=== PATIENT | male | born 1965 | race Caucasian/White ===

== ENCOUNTER 2017-12-01 08:43 | Inpatient (IN) | payer OTHER ==
[~2017-12-01] VITALS: Ht 175.3 cm; Wt 106.1 kg
[~2017-12-01 08:43] MED LIST: 12 HOUR DECONG120 M1 PO; ALLOPURINOL300 MG PO; ASPIR-LOW81 MG PO; ASPIRIN EC325 MG PO; CELEBREX200 MG PO; CLOPIDOGREL75 MG PO; COLCRYS0.6 MG PO; CYCLOBENZAPRINE10 MG PO; DOCUSATE SODIU100 MG PO; FLUOXETINE HCL20 MG PO; FOLIC ACID1 MG PO; INDOMETHACIN50 MG PO; LIDOCAINE700 MG TD; LISINOPRIL10 MG PO; LISINOPRIL20 MG PO; LITE COAT ASPI325 M1 PO; OXYCODONE HCL5 MG PO; RANITIDINE HCL75 MG PO; SENNA-TIME S T1 EACH PO; SIMVASTATIN40 MG PO; SIMVASTATIN80 MG PO; THERAGRAN1 TABLET PO; TRAMADOL HCL50 MG PO; VITAMIN B-1100 MG PO; XARELTO10 MG PO; ZOFRAN4 MG PO
[2017-12-01 10:14] LABS: HEMATOCRIT 46.8 % (38.0-50.0); HEMOGLOBIN 16.9 G/DL (12.5-16.6); MCHC 36.1 G/DL (30.0-36.0); MCV 85.9 FL (86-99); PLATELET COUNT 243 K/uL (156-360); RBC DIS.WIDTH-CV 12.2 % (11.8-14.6); RBC DIS.WIDTH-SD 38.4 % (39-53); RED BLOOD COUNT 5.45 M/uL (4.00-5.50); WHITE BLOOD COUNT 19.9 K/uL (4.1-10.2)
[2017-12-01 10:22] LABS: ALBUMIN 4.4 g/dL (3.2-4.8); CHLORIDE 104 mEq/L (99-109); POTASSIUM 4.2 mEq/L (3.7-5.4); SODIUM 137 mEq/L (136-147)
[2017-12-01 10:25] LABS: GLUCOSE 149 mg/dL (70-99); TOTAL PROTEIN 7.9 g/dL (6.4-8.3)
[2017-12-01 10:27] LABS: TOTAL BILIRUBIN 1.4 mg/dL (0.0-1.0)
[2017-12-01 10:28] LABS: ALKALINE PHOSPHATASE 88 IU/L (3-129); CREATININE 0.9 mg/dL (0.6-1.3); GFR ESTIMATE (CALCULATED) > 59 mL/min/ (58.99-99999)
[2017-12-01 10:29] LABS: UREA NITROGEN (BUN) 10 mg/dL (9-23)
[2017-12-01 10:30] LABS: AST (GOT) 14 IU/L (2-34)
[2017-12-01 10:31] LABS: ALT (GPT) 23 IU/L (3-49)
[2017-12-01] MEDS ORDERED: LO-DOSE ASPIRIN81 M2 PO (11:26)
[2017-12-01] MEDS ORDERED: LISINOPRIL20 MG PO (11:26)
[2017-12-01 19:20] VITALS: BP 133/93
[2017-12-01 19:25] VITALS: BP 133/93
[2017-12-01 20:00] VITALS: BP 137/92
[2017-12-01 21:00] VITALS: BP 132/86
[2017-12-01 22:00] VITALS: BP 116/89
[2017-12-01 23:00] VITALS: BP 109/80
[2017-12-02] VITALS (15 sets, daily range): BP systolic 66–119; BP diastolic 49–78
[2017-12-02 06:18] LABS: CHLORIDE 105 MEQ/L (99-109); CREATININE 1.1 MG/DL (0.6-1.3); GFR ESTIMATE (CALCULATED) > 59 mL/min/ (58.99-99999); GLUCOSE 127 mg/dL (70-99); POTASSIUM 4.2 MEQ/L (3.7-5.4); SODIUM 142 MEQ/L (136-147); UREA NITROGEN (BUN) 10 mg/dL (9-23)
[2017-12-02 06:23] LABS: HEMATOCRIT 35.7 % (38.0-50.0); HEMOGLOBIN 12.2 G/DL (12.5-16.6); MCH 30.7 PG (29.0-34.0); MCHC 34.2 G/DL (30.0-36.0); MCV 89.7 FL (86-99); PLATELET COUNT 190 K/uL (156-360); RBC DIS.WIDTH-CV 12.6 % (11.8-14.6); RBC DIS.WIDTH-SD 41.5 % (39-53); RED BLOOD COUNT 3.98 M/uL (4.00-5.50); WHITE BLOOD COUNT 10.4 K/uL (4.1-10.2)
[2017-12-03] VITALS (7 sets, daily range): BP systolic 100–148; BP diastolic 63–72
[2017-12-03 06:09] LABS: BASOPHIL (%) 0.2 % (0-1); EOSINOPHIL (%) 0.6 % (0-5); EOSINOPHIL COUNT 0.1 K/uL (0-0.3); HEMATOCRIT 35.2 % (38.0-50.0); HEMOGLOBIN 12.2 G/DL (12.5-16.6); IMMATURE GRANULOCYTE (%) 0.8 % (0.0-0.7); LYMPHOCYTE (%) 7.5 % (15-42); MCH 31.4 PG (29.0-34.0); MCHC 34.7 G/DL (30.0-36.0); MCV 90.7 FL (86-99); MONOCYTE (%) 7.5 % (3-12); NEUTROPHIL (%) 83.4 % (45-76); NEUTROPHIL COUNT 10.9 K/uL (1.8-6.4); PLATELET COUNT 197 K/uL (156-360); RBC DIS.WIDTH-CV 12.6 % (11.8-14.6); RBC DIS.WIDTH-SD 41.6 % (39-53); RED BLOOD COUNT 3.88 M/uL (4.00-5.50); WHITE BLOOD COUNT 13.1 K/uL (4.1-10.2)
[2017-12-03 06:30] LABS: CHLORIDE 105 MEQ/L (99-109); CREATININE 0.9 MG/DL (0.6-1.3); GFR ESTIMATE (CALCULATED) > 59 mL/min/ (58.99-99999); GLUCOSE 107 mg/dL (70-99); POTASSIUM 4.1 MEQ/L (3.7-5.4); SODIUM 140 MEQ/L (136-147); UREA NITROGEN (BUN) 14 mg/dL (9-23)
[2017-12-04 03:44] VITALS: BP 136/73
[2017-12-04 05:51] LABS: HEMOGLOBIN 11.6 G/DL (12.5-16.6); MCHC 34.1 G/DL (30.0-36.0); MCV 90.9 FL (86-99); PLATELET COUNT 231 K/uL (156-360); RBC DIS.WIDTH-CV 12.4 % (11.8-14.6); RBC DIS.WIDTH-SD 41.4 % (39-53); RED BLOOD COUNT 3.74 M/uL (4.00-5.50); WHITE BLOOD COUNT 12.6 K/uL (4.1-10.2)
[2017-12-04 06:14] LABS: CHLORIDE 103 MEQ/L (99-109); CREATININE 0.9 MG/DL (0.6-1.3); GFR ESTIMATE (CALCULATED) > 59 mL/min/ (58.99-99999); GLUCOSE 102 mg/dL (70-99); POTASSIUM 3.8 MEQ/L (3.7-5.4); SODIUM 138 MEQ/L (136-147); UREA NITROGEN (BUN) 15 mg/dL (9-23)
[2017-12-04 07:24] VITALS: BP 128/66
[2017-12-04 15:17] VITALS: BP 140/67
[2017-12-05 00:36] VITALS: BP 133/79
[2017-12-05 06:06] LABS: BASOPHIL (%) 0.4 % (0-1); EOSINOPHIL (%) 1.4 % (0-5); EOSINOPHIL COUNT 0.2 K/uL (0-0.3); HEMATOCRIT 32.2 % (38.0-50.0); HEMOGLOBIN 11.2 G/DL (12.5-16.6); IMMATURE GRANULOCYTE (%) 0.9 % (0.0-0.7); LYMPHOCYTE (%) 7.6 % (15-42); LYMPHOCYTE COUNT 0.8 K/uL (1.0-2.8); MCH 31.1 PG (29.0-34.0); MCHC 34.8 G/DL (30.0-36.0); MCV 89.4 FL (86-99); MONOCYTE (%) 9.6 % (3-12); MONOCYTE COUNT 1.1 K/uL (0-0.8); NEUTROPHIL (%) 80.1 % (45-76); NEUTROPHIL COUNT 8.8 K/uL (1.8-6.4); PLATELET COUNT 259 K/uL (156-360); RBC DIS.WIDTH-CV 12.3 % (11.8-14.6); RBC DIS.WIDTH-SD 40.2 % (39-53)
[2017-12-05 06:35] LABS: CHLORIDE 102 MEQ/L (99-109); CREATININE 0.8 MG/DL (0.6-1.3); GFR ESTIMATE (CALCULATED) > 59 mL/min/ (58.99-99999); GLUCOSE 97 mg/dL (70-99); POTASSIUM 3.6 MEQ/L (3.7-5.4); SODIUM 140 MEQ/L (136-147); UREA NITROGEN (BUN) 12 mg/dL (9-23)
[2017-12-05 07:36] VITALS: BP 131/74
[2017-12-05 15:33] VITALS: BP 126/87
[2017-12-05 23:15] VITALS: BP 97/53
[2017-12-06 06:12] LABS: HEMATOCRIT 30.6 % (38.0-50.0); HEMOGLOBIN 10.7 G/DL (12.5-16.6); MCH 30.9 PG (29.0-34.0); MCV 88.4 FL (86-99); PLATELET COUNT 279 K/uL (156-360); RBC DIS.WIDTH-CV 12.3 % (11.8-14.6); RBC DIS.WIDTH-SD 39.8 % (39-53); RED BLOOD COUNT 3.46 M/uL (4.00-5.50); WHITE BLOOD COUNT 9.7 K/uL (4.1-10.2)
[2017-12-06 06:32] LABS: CHLORIDE 104 MEQ/L (99-109); CREATININE 0.8 MG/DL (0.6-1.3); GFR ESTIMATE (CALCULATED) > 59 mL/min/ (58.99-99999); GLUCOSE 119 mg/dL (70-99); POTASSIUM 3.3 MEQ/L (3.7-5.4); SODIUM 140 MEQ/L (136-147); UREA NITROGEN (BUN) 8 mg/dL (9-23)
[2017-12-06 07:30] VITALS: BP 122/69
[2017-12-06 07:51] LABS: MAGNESIUM 1.9 mg/dl (1.3-2.7)
[2017-12-06 16:14] VITALS: BP 133/84
[2017-12-06 23:20] VITALS: BP 117/66
[2017-12-07 01:05] LABS: C DIFF TOXIN NEGATIVE (NEGATIVE)
[2017-12-07 07:31] VITALS: BP 124/83
[2017-12-07] MEDS ORDERED: NORCO 5/3251 TABLET PO (08:20)
[2017-12-07 08:53] LABS: HEMATOCRIT 29.9 % (38.0-50.0); HEMOGLOBIN 10.2 G/DL (12.5-16.6); MCH 30.3 PG (29.0-34.0); MCHC 34.1 G/DL (30.0-36.0); MCV 88.7 FL (86-99); PLATELET COUNT 289 K/uL (156-360); RBC DIS.WIDTH-CV 12.4 % (11.8-14.6); RBC DIS.WIDTH-SD 40.7 % (39-53); RED BLOOD COUNT 3.37 M/uL (4.00-5.50); WHITE BLOOD COUNT 9.3 K/uL (4.1-10.2)
[2017-12-07 09:15] LABS: CHLORIDE 107 MEQ/L (99-109); CREATININE 0.7 MG/DL (0.6-1.3); GFR ESTIMATE (CALCULATED) > 59 mL/min/ (58.99-99999); GLUCOSE 105 mg/dL (70-99); POTASSIUM 3.5 MEQ/L (3.7-5.4); SODIUM 144 MEQ/L (136-147); UREA NITROGEN (BUN) 5 mg/dL (9-23)
== END 2017-12-07 12:20 | disposition home or self-care (01) | DRG 330 ==
LOC: EME 08:43 → SDC 13:41 → EME 13:41 → 5SOUTH 17:56 → 2SOUTH 17:56 → ENRESERV 18:37 → 4WEST 19:14 → 5SOUTH 12-02 15:15
PROVIDERS: Emergency Medicine; Hospitalist; Physician Assistant Medical; Surgery
PROC: 5A09357 Assistance with Respiratory Ventilation, Less than 24 Consecutive Hours, Continuous Positive Airway Pressure (ICD-10-PCS; principal; 2017-12-01)
PROC: 0DBH0ZZ Excision of Cecum, Open Approach (ICD-10-PCS; principal; 2017-12-01)
PROC: 0DTJ0ZZ Resection of Appendix, Open Approach (ICD-10-PCS; principal; 2017-12-01)
PROC: 0WQF4ZZ Repair Abdominal Wall, Percutaneous Endoscopic Approach (ICD-10-PCS; principal; 2017-12-01)
PROC: 3E1M38Z Irrigation of Peritoneal Cavity using Irrigating Substance, Percutaneous Approach (ICD-10-PCS; principal; 2017-12-01)
DX: K35.3 Acute appendicitis with localized peritonitis (principal); K56.7 Ileus, unspecified; I69.354 Hemiplegia and hemiparesis following cerebral infarction affecting left non-dominant side; R09.02 Hypoxemia; E86.0 Dehydration; R73.9 Hyperglycemia, unspecified; R00.0 Tachycardia, unspecified; E87.6 Hypokalemia; I95.9 Hypotension, unspecified; J98.11 Atelectasis; K42.9 Umbilical hernia without obstruction or gangrene; I10 Essential (primary) hypertension; E78.5 Hyperlipidemia, unspecified; K21.9 Gastro-esophageal reflux disease without esophagitis; M10.9 Gout, unspecified; I73.9 Peripheral vascular disease, unspecified; Z96.642 Presence of left artificial hip joint; E66.9 Obesity, unspecified; Z68.34 Body mass index [BMI] 34.0-34.9, adult; Z53.31 Laparoscopic surgical procedure converted to open procedure; Z79.82 Long term (current) use of aspirin
CPT/HCPCS: 71045; 74018; 74176; 80048; 80053; 81003; 83605; 83735; 85025; 85027; 87493; 87641; 88304; 93005; 94002; 94640; 94799; 99281; 99285; J0330; J1170; J1650; J1940; J2060; J2270; J2405; J2543; J2710; J2765; J3010; J3475; J3480; J7030; J7050; J7120; J7643; S0028; S0074